=== PATIENT | female | born 2000 | race Hispanic/Latino ===

== ENCOUNTER 2022-03-19 11:44 | Emergency (ER) | payer OTHER ==
[~2022-03-19] VITALS: Ht 162.6 cm; Wt 72.6 kg
[2022-03-19] MEDS ORDERED: IBUPROFEN600 MG PO (12:40)
== END 2022-03-19 12:47 | disposition home or self-care (01) ==
LOC: ER 11:56
DX: R07.89 Other chest pain (principal); S20.214A Contusion of middle front wall of thorax, initial encounter; V43.52XA Car driver injured in collision with other type car in traffic accident, initial encounter; Y92.488 Other paved roadways as the place of occurrence of the external cause
CPT/HCPCS: 71046; 99283